=== PATIENT | female | born 1990 | race Caucasian/White ===

== ENCOUNTER → 2019-08-30 14:46 | Outpatient (CLI) | payer OTHER, SELFPAY ==
--- NOTE | ~2019-08-30 | XR_ITS ---
XR lumbar spine 2-3V DATE: 08/30/2019 15:18 INDICATION: Cervical, thoracic, lumbar back pain, bilateral sacroiliac pain TECHNIQUE: AP, lateral and coned lateral lumbosacral standing views COMPARISON: None FINDINGS: There are 4 functional lumbar vertebrae. There is mild rotatory levoscoliosis of the lumbar spine. No fracture, bone destruction or spondyloli sthesis is evident. The lumbar and lumbosacral interspaces are well preserved. The sacroiliac joints appear normal. IMPRESSION: Mild rotatory levoscoliosis Reviewed, dictated and finalized at location B. FRAME TENDER IMPRESSION: Mild rotatory levoscoliosis
--- NOTE | ~2019-08-30 | XR_ITS ---
XR thoracic spine 2V DATE: 08/30/2019 15:18 INDICATION: Cervical, thoracic, lumbar back pain, bilateral sacroiliac pain TECHNIQUE: AP, lateral and swimmer views COMPARISON: None FINDINGS: There is approximately 22 degrees dextroscoliosis measured from T5 to T11. No fracture or d islocation or bone destruction is evident. The thoracic pedicles are intact. No paraspinal soft tissu e thickening is evident. IMPRESSION: Dextroscoliosis Reviewed, dictated and finalized at location B. MANAGER IMPRESSION: Dextroscoliosis
--- NOTE | ~2019-08-30 | XR_ITS ---
XR_CERV2-3V_CR DATE: 08/30/2019 15:18 INDICATION: Cervical, thoracic, lumbar and bilateral sacroiliac pain TECHNIQUE: AP, open-mouth, lateral views COMPARISON: None FINDINGS: There is reversal of cervical curvature. C1 and C2 are normally aligned and cervical interspaces are preserved. The odontoid process is intact . No fracture or dislocation or locked facet or prevertebral soft tissue swelling. IMPRESSION: Reversal of cervical curvature Reviewed, dictated and finalized at Location A. Reviewed, dictated and finalized at location B. UNICATIONS PROFESSOR
--- NOTE | ~2019-08-30 | XR_ITS ---
EXAMINATION: XR pelvis 1-2V DATE: 08/30/2019 15:18 INDICATION: Pain of the sacroiliac joints. Low back pain. TECHNIQUE: An anteroposterior view of the pelvis was obtained. COMPARISON: None. FINDINGS: There is levoscoliosis of lumbar spine. No fracture. There is mild osteoarthritis of left s acroiliac joint and left hip joint characterized by tiny osteophytes. IMPRESSION: 1. Mild polyarticular osteoarthritis. Reviewed, dictated and finalized at location A. [employer] OFFICER
== END ==
PROVIDERS: Visit Provider Chiropractor
DX: M54.5 Low back pain (principal); M41.9 Scoliosis, unspecified; M15.9 Polyosteoarthritis, unspecified
CPT/HCPCS: 72040; 72070; 72100; 72170